=== PATIENT | female | born 1985 | race Two or more races ===

== ENCOUNTER 2019-02-23 17:56 | Emergency (ER) | payer MEDICAID ==
--- NOTE | 2019-02-23 18:11 | ER Document Report ---
ED Medical Screen (RME) - General Chief Complaint: Psych Problem Stated Complaint: IVC W PAPERS Time Seen by Provider: 02/23/19 18:05 Primary Care Provider: DOLORES RUBIO MD [Primary Care Provider] - Follow up as needed Information source: Patient Notes: Patient presents with law enforcement and shackles. Patient has IVC paperwork already taken out. Patient has had visual hallucination and paranoid delusions. Patient dropped her kids off in a gentlemen's parking lot and left them there. Patient denies any history of mental illness although states that she does have stressors. I have greeted and performed a rapid initial assessment of this patient. A comprehensive ED assessment and evaluation of the patient, analysis of test results and completion of the medical decision making process will be conducted by additional ED providers. - Related Data Allergies/Adverse Reactions: No Known Allergies Allergy (Verified 02/23/19 18:06) Physical Exam - Vital signs Vitals: Temp Pulse BP Pulse Ox 98.3 F 115 H 152/87 H 98 02/23/19 18:02 02/23/19 18:02 02/23/19 18:02 02/23/19 18:02 - Psychological Associated symptoms: Auditory hallucinations, Flight of ideas, Uncooperative Course - Vital Signs Vital signs: Temp Pulse Resp BP Pulse Ox 98.3 F 115 H 152/87 H 98 02/23/19 18:02 02/23/19 18:02 02/23/19 18:02 02/23/19 18:02 Doctor's Discharge - Discharge Referrals: DOLORES RUBIO MD [Primary Care Provider] - Follow up as needed
--- NOTE | 2019-02-23 19:23 | ER Document Report ---
ED General - General Chief Complaint: Psych Problem Stated Complaint: IVC W PAPERS Time Seen by Provider: 02/23/19 18:05 Primary Care Provider: DOLORES RUBIO MD [Primary Care Provider] - Follow up as needed - [facility] Notes: Patient is a 33-year-old female who was met by mobile crisis in law enforcement after dropping her kids off of the [employer] club and left in there. According to the IVC paperwork, patient has not been tending to her personal hygiene. She has been complaining of visual hallucinations, being paranoid, and posturing towards the mobile board worker as well as police officers. Patient told them that she has been abducted. There is no other significant past medical history that we can obtain at this time. Denies fever or recent illness otherwise. She does not take any medicines daily. Patient cannot attest as to if she has drugs in her system are not. Patient states that "I am in the public and somebody could have put drugs in me." - Related Data Allergies/Adverse Reactions: No Known Allergies Allergy (Verified 02/23/19 18:06) Past Medical History - General Information source: Patient - Social History Smoking Status: Unknown if Ever Smoked Family History: Reviewed & Not Pertinent Patient has suicidal ideation: No Patient has homicidal ideation: No Review of Systems - Review of Systems -: Yes ROS unobtainable due to patient's medical condition - But is grossly denying anything else for ROS Physical Exam - Vital signs Vitals: Temp Pulse BP Pulse Ox 98.3 F 115 H 152/87 H 98 02/23/19 18:02 02/23/19 18:02 02/23/19 18:02 02/23/19 18:02 - Notes Notes: PHYSICAL EXAMINATION: GENERAL: Well-appearing, well-nourished and in no acute distress. Pt was violent upon arrival and had to be placed in restraints. She has since calmed down, but is somewhat resistant to obtaining blood work. HEAD: Atraumatic, normocephalic. EYES: Pupils equal round and reactive to light, extraocular movements intact, sclera anicteric, conjunctiva are normal. ENT: Nares patent and without discharge. oropharynx clear without exudates. No tonsilar hypertrophy or erythema. Moist mucous membranes. NECK: Normal range of motion, supple without lymphadenopathy LUNGS: Breath sounds clear to auscultation bilaterally and equal. No wheezes rales or rhonchi. HEART: Regular rate and rhythm without murmurs, rubs, gallops. ABDOMEN: Soft, nontender, nondistended abdomen. No guarding, no rebound. Normal bowel sounds present. No CVA tenderness bilaterally. Musculoskeletal: FROM to passive/active. Strength 5+/5. Extremities: No cyanosis, clubbing, or edema b/l. Peripheral pulses 2+. Capillary refill less than 3 seconds. NEUROLOGICAL: Cranial nerves grossly intact. PSYCH: Pt is not responding to questions appropriately and going off on random discussion. She is looking all around the room and does not make eye contact. Flat affect at this time. She is mumbling most of her words. Tangential speech. SKIN: Warm, Dry, normal turgor, no rashes or lesions noted. Course - Re-evaluation Re-evalutation: 02/23/19 19:33 Patient is an afebrile, well-hydrated, 33-year-old female who presents on IVC papers by law enforcement and placed on it by mobile crisis. Vitals are currently acceptable. PE is otherwise unremarkable. History is limited by patient compliance and tangential speech. Right now, the patient is not as aggressive or violent as she was prior to being in restraints. She has allowed an EKG to be performed. We will attempt to obtain blood again. We did consider using ketamine 2 mg/kg IM to calm down the patient, but if she is acting as she is we may try a dose of Ativan prior. Patient will remain on papers and evaluated by our psychology team in the morning. Patient is otherwise nontoxic- appearing. 02/23/19 19:49 Pt is continuing to resist blood work and pulling her arm away despite being in restraints. We will give ativan 1mg IM along with Benadryl 50mg IM and try again thereafter. May consider stronger meds if needed. Care of patient to be transferred to night APC at turnover. - Vital Signs Vital signs: Temp Pulse Resp BP Pulse Ox 98.3 F 115 H 152/87 H 98 02/23/19 18:02 02/23/19 18:02 02/23/19 18:02 02/23/19 18:02 Discharge - Discharge Clinical Impression: Hallucinations, Violent behavior Condition: Stable Disposition: PSYCH HOSP/UNIT Referrals: DOLORES RUBIO MD [Primary Care Provider] - Follow up as needed
[2019-02-23] MEDS ORDERED: LORAZEPAM INJ 2 MG/1 ML VIAL IM ONE (19:49)
[2019-02-23] MEDS ORDERED: DIPHENHYDRAMINE HCL 50 MG/ML VIAL IM ONE (19:49)
[2019-02-23] MEDS ORDERED: OLANZAPINE INJ/PF 10 MG SDV IM ONE (20:44)
[2019-02-23 20:53] LABS: ABSOLUTE LYMPHOCYTES (AUTO) 2.1 10^3/uL (0.5-4.7); ABSOLUTE NEUT (AUTO) 5.8 10^3/uL (1.7-8.2); BASOPHILS % (AUTO) 0.4 % (0-2); EOSINOPHILS % (AUTO) 0.1 % (0-6); HEMATOCRIT 33.9 % (36.0-47.0); HEMOGLOBIN 10.9 g/dL (12.0-15.5); LYMPHOCYTES % (AUTO) 23.1 % (13-45); MEAN CORPUSCULAR HEMOGLOBIN 27.4 pg (27.0-33.4); MEAN CORPUSCULAR HGB CONC 32.2 g/dL (32.0-36.0); MEAN CORPUSCULAR VOLUME 85 fl (80-97); MONOCYTES % (AUTO) 11.2 % (3-13); PLATELET COUNT 300 10^3/uL (150-450); RED BLOOD COUNT 3.98 10^6/uL (3.72-5.28); RED CELL DISTRIBUTION WIDTH 15.7 % (11.5-14.0); SEGMENTED NEUTROPHILS % (AUTO) 65.2 % (42-78); TOTAL CELLS COUNTED % (AUTO) 100 %; WHITE BLOOD COUNT 8.9 10^3/uL (4.0-10.5)
[2019-02-23 21:25] LABS: ALBUMIN 4.7 g/dL (3.5-5.0); ALKALINE PHOSPHATASE 104 U/L (38-126); ANION GAP 12 (5-19); ASPARTATE AMINO TRANSFERASE 25 U/L (14-36); BILIRUBIN,DIRECT 0.1 mg/dL (0.0-0.4); BILIRUBIN,TOTAL 1.1 mg/dL (0.2-1.3); BLOOD UREA NITROGEN 17 mg/dL (7-20); CALCIUM 10.3 mg/dL (8.4-10.2); CARBON DIOXIDE 26 mmol/L (22-30); CHLORIDE 106 mmol/L (98-107); GLUCOSE 87 mg/dL (75-110); POTASSIUM 4.6 mmol/L (3.6-5.0); TOTAL PROTEIN 7.7 g/dL (6.3-8.2)
[2019-02-23 21:27] LABS: ACETAMINOPHEN < 10 ug/mL (10-30); ALCOHOL < 10 mg/dL (NONE DETECTED); SALICYLATE < 1.0 mg/dL (2.0-20.0)
--- NOTE | 2019-02-23 22:52 | EKG REPORT ---
SEVERITY:- ABNORMAL ECG - SINUS TACHYCARDIA BIATRIAL ABNORMALITIES BORDERLINE T ABNORMALITIES, ANT-LAT LEADS BORDERLINE PROLONGED QT INTERVAL : Confirmed by: Maxi Calderón 23-Feb-2019 22:51:20
[2019-02-24 09:51] LABS: APPEARANCE,URINE CLOUDY; BILIRUBIN,URINE SMALL (NEGATIVE); GLUCOSE, URINE NEGATIVE (NEGATIVE); KETONES,URINE 80 mg/dL (NEGATIVE); LEUKOCYTE ESTERASE,URINE SMALL (NEGATIVE); NITRITE,URINE NEGATIVE (NEGATIVE); PROTEIN,URINE 30 mg/dL (NEGATIVE); URINE SPECIFIC GRAVITY 1.032
[2019-02-24 09:52] LABS: COLOR,URINE YELLOW
[2019-02-24 10:03] LABS: URINE AMPHETAMINES SCREEN NEGATIVE; URINE BARBITURATES SCREEN NEGATIVE; URINE BENZODIAZEPINES SCREEN NEGATIVE; URINE COCAINE SCREEN NEGATIVE; URINE MARIJUANA (THC) SCREEN NEGATIVE; URINE METHADONE SCREEN NEGATIVE; URINE PHENCYCLIDINE SCREEN NEGATIVE
--- NOTE | 2019-02-24 13:50 | ER Document Report ---
Doctor's Note Notes: 02/24/19 13:49 PHYSICAL EXAMINATION: GENERAL: Well-appearing and in no acute distress. HEAD: Atraumatic, normocephalic. EYES: extraocular movements intact, sclera anicteric, conjunctiva are normal. ENT: nares patent, Moist mucous membranes. NECK: Normal range of motion, supple without lymphadenopathy LUNGS: CTAB and equal. No wheezes rales or rhonchi. HEART: Regular rate and rhythm without murmurs ABDOMEN: Soft, no tenderness. No guarding, no rebound EXTREMITIES: Normal range of motion, no pitting edema. No cyanosis. BACK: No midline tenderness, no CVA tenderness NEUROLOGICAL: Cranial nerves grossly intact. Normal speech. PSYCH: Normal mood, normal affect. SKIN: Warm, Dry, normal turgor, no rashes or lesions noted Patient's nursing notes, vital signs and previous diagnostic evaluation reviewed. Patient is IVC, no medical concerns at this time. Benign clinical examination. Awaiting for medication management by mental health. Patient has no complaints at this time
--- NOTE | 2019-02-24 17:34 | PSYCHOLOGICAL NOTE ---
Psych Note - Psych Note Date seen by psych provider: 02/24/19 Time seen by psych provider: 02:50 Psych Note: Date seen: 02/24/2019 Time seen by psych: 14:50 Psych Note: Reason for consult: IVC- [facility] Patient arrived to ED via [facility]'s Department. Patient engaged clinician in conversation. Patient presented as intelligent and calm, however client's thoughts are not linear. Patient spoke about "coming to the hospital to make sure her blood is good." Patient reported non compliance with [employer] deputies because she felt attacked. Patient denies suicidal and homicidal ideation, plan and attempts. Patient's grandmother visited, and then provided collateral information. Grandmother described patient as "book smart but has no common sense." Grandmother stated patient has not exhibited symptoms like this before. Grandmother stated patient "has a good ." Grandmother reports symptoms began "after she had the baby." Grandmother described "she looked like someone else" when the symptoms began. Grandmother request "she get help and be kept away from the kids." Patient is alert and oriented to person, place, time. Mood is anxious and sometime irritable, however patient is able to engage with clinician. Patient denies suicidal and homicidal ideation. Delusions are absent, however behavior is not congruent with an intact reality based presentation (i.e.: organized and linear through processes). Patient reports auditory and visual hallucinations. Eye contact is appropriate. Conversational speech is within normal rate, tone, and prosody. Intellectual ability appears to be within average range. Attention and concentration are good. Insight, judgment and impulse control are currently poor. DSM-5 Diagnosis: Alcohol Use Disorder Impression/Plan: Patient is not cleared from acute psychiatric services. Patient does meet IVC criteria per [place] GS 122C. At this time, patient is not demonstrating insight and judgment into her current situation. Patient exhibits little insight and judgment in her own plan of care development. Patient cannot organize and articulate thoughts in a linear manner. Patient experiences auditory and visual hallucinations that "get me on the right paths." Patient will be reevaluated. Dr. Aparicio was consulted on the care and management of this patient; attending physician is in agreement with recommendations and disposition.
[2019-02-24] MEDS: CHLORPROMAZINE HCL INJ 25 MG/1 ML AMPULE IV SCH (18:37)
[2019-02-25] MEDS: CHLORPROMAZINE HCL INJ 25 MG/1 ML AMPULE IV SCH ×2 (01:36→09:23)
--- NOTE | 2019-02-25 04:35 | ER Document Report ---
Doctor's Note Notes: 02/25/19 04:00 I have evaluated the patient for restraint purposes. Patient sleeping at this time. No distress noted.
[2019-02-25] MEDS ORDERED: CHLORPROMAZINE HCL INJ 25 MG/1 ML AMPULE IM PRN (09:54)
--- NOTE | 2019-02-25 09:56 | ER Document Report ---
Doctor's Note Notes: 02/25/19 09:56 Patient is currently sleeping, breathing is even and unlabored. Patient is not currently in restraints. We will continue to monitor. Medications ordered as recommended by mental health. 02/25/19 12:45 Patient sleeping but easy to arouse. Patient has not required restraints today. I did inform the patient that she had to be out of restraints for at least 24 hours before we could find her placement to another facility. Patient states she is ready to go. I did inform the patient she cannot go as she is under IVC paperwork. Patient is currently breast-feeding and pumping her milk. Patient denies questions or concerns with this. We will continue to monitor.
[2019-02-25] MEDS: OLANZAPINE 5 MG TAB.RAPDIS PO SCH ×2 (11:01→17:33)
[2019-02-25] MEDS: BENZTROPINE MESYLATE 1 MG TABLET PO SCH (11:02)
--- NOTE | 2019-02-25 17:29 | PSYCHOLOGICAL NOTE ---
Psych Note - Psych Note Date seen by psych provider: 02/25/19 Time seen by psych provider: 08:10 Psych Note: Checked in on patient, who was sleeping when clinician entered the room. Patient was slighted agitated as she expressed a desire to "go and take care of my resp onsibilities." Clinician attempted to explain to patient she could not be released until medical and behavioral staff agree she and her family "will be safe." Patient did not exhibit linier thinking. Patient spoke loosely about "conditioned not to show emotion", being judged, and "getting back to her responsibilities." Attempted to contact patient's mother, Catherine Ramirez ([phone]). Left H IPPA compliant voicemail. DSM Diagnosis: Unspecified psychosis Medication recommendations: ADD Zyprexa 5MG 2x daily Impression\\plan: Patient is cleared from acute psychiatric services. Patient does not meet IVC criteria per [place] GS 122C. Patient was brought to [facility] ED with concerns that she has been violent to other residents and staff. Patient is not demonstrating any erratic behaviors is able to conduct organized linear conversation and has been appropriate during [facility] visit. At this time, the patient is recommended to return to [facility] as they are the clinical home and it is the legal guardian of the patient to obtain appropriate placement. Dr. Aparicio was consulted to care management of this patient; attending physicians in agreement with recommendations disposition.
[2019-02-26] MEDS: BENZTROPINE MESYLATE 1 MG TABLET PO SCH (11:00)
[2019-02-26] MEDS: OLANZAPINE 5 MG TAB.RAPDIS PO SCH ×2 (11:01→17:38)
--- NOTE | 2019-02-26 16:41 | PSYCHOLOGICAL NOTE ---
Psych Note - Psych Note Date seen by psych provider: 02/26/19 Time seen by psych provider: 08:45 Psych Note: Reason for consult: IVC- [facility] Patient arrived to ED via [facility]'s Department. Patient engaged clinician in conversation. Patient presented as intelligent and calm, however client's thoughts are not linear. Patient spoke about "coming to the hospital to make sure her blood is good." Patient reported non compliance with [employer] deputies because she felt attacked. Patient denies suicidal and homicidal ideation, plan and attempts. Check in conducted with patient DSM-5 Diagnosis: Unspecified psychosis Medication recommendations per [facility]'s contracted psychiatrist Dr. Katelynn MAIN are as follows Please add Depakote 250 MNG twice daily Continue Cogentin 1 mg daily Continue Zyprexa Zydis 5 mg twice daily Continue Thorazine 50MG every 6 hours as needed Impression/Plan: Patient is recommended to continue under IVC. At this time, patient continues to not demonstrate difficulty in communicating her thoughts and organized and linear manner. Patient continues to demonstrate the inability to correctly remember events leading up to coming to [facility] ED. Patient states that she does not believe that the people she was engaging with more police, she states that she had been kidnapped not that she was taken to snf, and denies that she dropped her children off to a bar. Patient information has been faxed to [facility] [place], [facility] and [facility] for placement consideration. Patient will be reevaluated. Dr. Aparicio was consulted on the care and management of this patient; attending physician is in agreement with recommendations and disposition.
--- NOTE | 2019-02-26 20:27 | ER Document Report ---
Doctor's Note Notes: 02/26/19 19:30 Patient alert and oriented x3. Patient is calm and cooperative. To my understanding patient has not required restraints as of today. Attempting to place the patient in a mental health facility. Patient remains on IVC. Patient no acute distress.
[2019-02-27] MEDS: DIVALPROEX SODIUM 250 MG TAB.SR.24H PO SCH ×2 (11:06→18:13)
[2019-02-27] MEDS: BENZTROPINE MESYLATE 1 MG TABLET PO SCH (11:07)
[2019-02-27] MEDS: OLANZAPINE 5 MG TAB.RAPDIS PO SCH ×2 (11:07→18:13)
--- NOTE | 2019-02-27 13:00 | ER Document Report ---
Doctor's Note Notes: 02/27/19 12:59 Patient in no acute distress. Patient has been ambulating to the restroom with a steady gait. Placement pending.
[2019-02-28] MEDS: BENZTROPINE MESYLATE 1 MG TABLET PO SCH (10:46)
[2019-02-28] MEDS: OLANZAPINE 5 MG TAB.RAPDIS PO SCH ×2 (10:46→17:54)
[2019-02-28] MEDS: DIVALPROEX SODIUM 250 MG TAB.SR.24H PO SCH ×2 (10:46→17:54)
--- NOTE | 2019-02-28 18:05 | ER Document Report ---
Doctor's Note Notes: 02/28/19 18:04 Patient alert and oriented x3. Chart reviewed. Patient is calm and cooperative. Patient has not required restraints today. Attempting to place the patient in a mental health facility. Patient remains on IVC. Patient no acute distress. Patient denies any needs today.
[2019-03-01] MEDS: DIVALPROEX SODIUM 250 MG TAB.SR.24H PO SCH ×2 (09:23→17:02)
[2019-03-01] MEDS: OLANZAPINE 5 MG TAB.RAPDIS PO SCH ×2 (09:23→17:02)
[2019-03-01] MEDS: BENZTROPINE MESYLATE 1 MG TABLET PO SCH (09:24)
--- NOTE | 2019-03-01 18:11 | ER Document Report ---
Doctor's Note Notes: 03/01/19 17:07 PHYSICAL EXAMINATION: GENERAL: Well-appearing and in no acute distress. HEAD: Atraumatic, normocephalic. EYES: sclera anicteric, conjunctiva are normal. ENT: nares patent. Moist mucous membranes. NECK: Normal range of motion, supple LUNGS: Respirations unlabored HEART: Regular rate and rhythm without murmurs EXTREMITIES: Normal range of motion, no pitting edema. No cyanosis. NEUROLOGICAL: Cranial nerves grossly intact. Normal speech. Normal gait. PSYCH: Nonlinear thought with paranoia SKIN: Warm, Dry, normal turgor, no rashes or lesions noted Reviewed nurse's note, vital signs and diagnostic evaluation. Patient denies any complaints at this time. Patient is cleared medically for transfer to psychiatric facility. Patient is awaiting bed placement. Mental health team states that they have contacted [facility], although we are waiting for an available bed. 03/01/19 19:52 Nurse states that medical social consultant is at bedside speaking with patient at this time.
[2019-03-02] MEDS: DIVALPROEX SODIUM 250 MG TAB.SR.24H PO SCH ×2 (10:10→18:35)
[2019-03-02] MEDS: BENZTROPINE MESYLATE 1 MG TABLET PO SCH (10:10)
[2019-03-02] MEDS: OLANZAPINE 5 MG TAB.RAPDIS PO SCH ×2 (10:10→18:35)
--- NOTE | 2019-03-02 10:33 | ER Document Report ---
Doctor's Note Notes: 03/02/19 10:32 Briefly spoke with patient as she woke up and was getting ready to go wash her face. Nursing notes reviewed, vital signs stable. Patient was pleasant with a flat affect and was just wondering what her disposition was. I told her we are still awaiting placement at this time and a will update her if we get new information regarding placement. Patient denies any pain, denies any new complaints. 03/02/19 19:55
--- NOTE | 2019-03-02 13:12 | PSYCHOLOGICAL NOTE ---
Psych Note - Psych Note Date seen by psych provider: 03/02/19 Time seen by psych provider: 10:00 Psych Note: Reason for consult: IVC- [facility] Luis Alberto Quiles ([phone]) Patient arrived to ED via [facility]'s Department. Patient engaged clinician in conversation. Patient presented as intelligent and calm, however client's thoughts are not linear. Patient spoke about "coming to the hospital to make sure her blood is good." Patient reported non compliance with [facility] deputies because she felt attacked. Patient denies suicidal and homicidal ideation, plan and attempts. Check in conducted with patient She continues to demonstrate significant difficulties with reality versus her delusions. Patient has successfully gone almost 48 hours without going into restraints however presents today with flight of thought and significant difficulties in communicating in organized linear manner. When it is explained to the patient that we are attempting to help her back to her mental health baseline, she becomes very anxious and asks if we going to travel back in time. Patient has been attempting to use food condiments (ie butter) as a lotion. DSM-5 Diagnosis: Unspecified psychosis Medication recommendations per [facility]'s contracted psychiatrist Dr. Katelynn MAIN are as follows Please add Depakote 250 MNG twice daily Continue Cogentin 1 mg daily Continue Zyprexa Zydis 5 mg twice daily Continue Thorazine 50MG every 6 hours as needed Impression/Plan: Patient is recommended to continue under IVC. At this time, patient continues to demonstrate difficulty in communicating her thoughts and organized and linear manner. Patient continues to demonstrate the inability to correctly remember events leading up to coming to [facility] ED. Patient states that she does not believe that the people she was engaging with more police, she states that she had been kidnapped not that she was taken to correction, and denies that she dropped her children off to a bar. Patient information has been faxed to [place] for placement consideration. Patient will be reevaluated. Dr. Aparicio was consulted on the care and management of this patient; attending physician is in agreement with recommendations and disposition.
[2019-03-02] MEDS ORDERED: CHLORPROMAZINE HCL INJ 25 MG/1 ML AMPULE IM ONE (22:00)
[2019-03-03] MEDS: DIVALPROEX SODIUM 250 MG TAB.SR.24H PO SCH ×2 (10:15→18:15)
[2019-03-03] MEDS: BENZTROPINE MESYLATE 1 MG TABLET PO SCH (10:15)
[2019-03-03] MEDS: OLANZAPINE 5 MG TAB.RAPDIS PO SCH ×2 (10:15→18:16)
[2019-03-03] MEDS: CHLORPROMAZINE HCL INJ 25 MG/1 ML AMPULE IM SCH ×2 (12:43→18:16)
--- NOTE | 2019-03-03 17:50 | ER Document Report ---
Doctor's Note Notes: 03/03/19 17:49 Chart reviewed, patient's resting in her room with no acute distress noted. Respirations equal and unlabored. Nursing staff reports no issues with patient today. She is currently on IVC order pending placement.
--- NOTE | 2019-03-03 18:46 | PSYCHOLOGICAL NOTE ---
Psych Note - Psych Note Date seen by psych provider: 03/03/19 Time seen by psych provider: 07:55 Psych Note: Clinician conducted chart review at 06:45. Check in conducted with patient Patient appeared to be sleeping when clinician entered room. She continues to demonstrate significant difficulties with reality versus her delusions. Patient was fixated on wanting to go home." DSM-5 Diagnosis: Unspecified psychosis Medication recommendations per [facility]'s contracted psychiatrist Dr. Katelynn MAIN are as follows Continue Depakote 250 MNG twice daily Continue Cogentin 1 mg daily Continue Zyprexa Zydis 5 mg twice daily Continue Thorazine 50MG every 6 hours as needed Impression/Plan: Patient is recommended to continue under IVC. At this time, patient continues to demonstrate difficulty in communicating her thoughts and organized and linear manner. Patient continues to demonstrate the inability to correctly remember events leading up to coming to [facility] ED. Patient will be reevaluated. [place] has accepted patient for admissions. Plan is for patient to be transported to [place] tomorrow, 03/03/19. Dr. Aparicio was consulted on the care and management of this patient; attending physician is in agreement with recommendations and disposition.
[2019-03-04] MEDS: CHLORPROMAZINE HCL INJ 25 MG/1 ML AMPULE IM SCH ×2 (00:19→07:06)
[2019-03-04] MEDS ORDERED: CHLORPROMAZINE HCL INJ 25 MG/1 ML AMPULE IM ONE (08:30)
[2019-03-04 08:32] VITALS: BP 137/75
--- NOTE | 2019-03-04 08:45 | ER Document Report ---
Doctor's Note Notes: 03/04/19 08:45 Patient seen briefly, transfer pending. She has no acute complaints or concerns. She is actively walking around the room, brushing her teeth. She is medically cleared, stable for transfer.
== END 2019-03-04 08:50 ==
LOC: ER 17:56
DX: Z04.6 Encounter for general psychiatric examination, requested by authority (principal); R44.1 Visual hallucinations; R45.6 Violent behavior; Z75.1 Person awaiting admission to adequate facility elsewhere; Z78.1 Physical restraint status
CPT/HCPCS: 93005; 96376; 99285; 96372; 96374; 36415; 87086; 80307 ×4; 84703; 85025; 80053; 81001; 93010; J3490 ×19; J3230 ×6; J1200; J2060